=== PATIENT | male | born 1960 | race Caucasian/White ===

== ENCOUNTER 2020-11-22 08:50 | Outpatient (RCR) | payer OTHER, SELFPAY ==
[2020-11-22] MEDS: COVID-19 VACC, MRNA(PFIZER)/PF 30 MCG/0.3 ML SYRINGE IM (07:49)
[2020-12-13] MEDS: COVID-19 VACC, MRNA(PFIZER)/PF 30 MCG/0.3 ML SYRINGE IM (07:34)
== END 2021-02-19 23:59 ==
LOC: IMMUN 08:50
PROVIDERS: PCP Internal Medicine; Visit Provider Family Medicine
DX: Z23 Encounter for immunization (principal)
CPT/HCPCS: 0001A; 0002A; 91300